=== PATIENT | male | born 1970 | race African-American/Black ===

== ENCOUNTER → 2019-05-06 | Outpatient (CLI) | payer BC ==
--- NOTE | 2019-05-06 11:30 | CARD ---
MR#: [id number] Date of Study: 05/06/2019 Ordering Physician: TATYANA COMER, Referring Physician: TATYANA COMER, Tech: [employer] APPROVED REPORT EXAM: Two-dimensional and M-mode echocardiogram with Doppler and color Doppler. Other Information Quality : GoodHR: 78bpm INDICATION Hypertension/HCVD RISK FACTORS Hypertension Smoking 2D DIMENSIONS RVDd2.6 (2.9-3.5cm)Left Atrium(2D)2.5 (1.6-4.0cm) IVSd1.0 (0.7-1.1cm)Aortic Root(2D)2.8 (2.0-3.7cm) LVDd4.5 (3.9-5.9cm)LVOT Diameter2.0 (1.8-2.4cm) PWd1.0 (0.7-1.1cm)LVDs3.2 (2.5-4.0cm) FS (%) 29.5 %SV53.0 ml LVEF(%)56.6 (>50%) Aortic Valve AoV Peak Manpreet.118.7cm/sAoV VTI18.9cm AO Peak GR.5.6mmHgLVOT Peak Manpreet.114.9cm/s LVOT VTI 18.69cmAO Mean GR.3mmHg KELSEA (VMAX)2.53ho2QSM (VTI)3.06cm2 Mitral Valve MV E Bpkmsohc81.5cm/sMV DECEL HGFC385wm MV A Gnadnepf30.3cm/sMV HCF63bw E/A Ratio1.2MVA (PHT)4.36cm2 TDI E/Lateral E'8.3E/Medial E'9.6 Pulmonary Valve PV Peak Rjofvnun37.2cm/sPV Peak Grad.3mmHg Tricuspid Valve TR P. Jugrgelo470ti/sRAP [id number] TR Peak Gr.31icMcRURA99cnTs Pulmonary Vein S1 Wxvyison09.2cm/sD2 Vfbyeokb35.3cm/s PVa [id number] LEFT VENTRICLE The left ventricle is normal size. There is mild concentric left ventricular hypertrophy. The left ve ntricular systolic function is normal. The Ejection Fraction is 50-55%. There is normal LV segmental wall motion. RIGHT VENTRICLE The right ventricle is normal size. There is normal right ventricular wall thickness. The right ventr icular systolic function is normal. ATRIA The left atrium size is normal. The right atrium size is normal. The interatrial septum is intact wit h no evidence for an atrial septal defect or patent foramen ovale as noted on 2-D or Doppler imaging. AORTIC VALVE The aortic valve is normal in structure and function. Doppler and Color Flow revealed no significant aortic regurgitation. There is no significant aortic valvular stenosis. MITRAL VALVE The mitral valve is mildly thickened. There is no evidence of mitral valve prolapse. There is no mitr al valve stenosis. Doppler and Color-flow revealed trace mitral regurgitation. TRICUSPID VALVE The tricuspid valve is normal in structure and function. Doppler and Color Flow revealed trace tricus pid regurgitation with an estimated PAP of 27 mmHg. There is no tricuspid valve stenosis. PULMONIC VALVE The pulmonic valve is not well visualized. Doppler and Color Flow revealed trace pulmonic valvular re gurgitation. GREAT VESSELS The aortic root is normal in size. The IVC is normal in size and collapses >50% with inspiration. PERICARDIAL EFFUSION There is no evidence of significant pericardial effusion. Critical Notification Critical Value: No <Conclusion> The left ventricular systolic function is normal. The Ejection Fraction is 50-55%. There is normal LV segmental wall motion. Trace mitral regurgitation. Trace tricuspid regurgitation with an estimated PAP of 27 mmHg. There is no evidence of significant pericardial effusion. Signed by : Oswaldo Black, Electronically Approved : 05/06/2019 11:30:13
--- NOTE | 2019-05-06 11:58 | RAD ---
MR#: [id number] Date of Study: 05/06/2019 Ordering Physician: TATYANA COMER, Referring Physician: TATYANA COMER, Tech: Sowmya Solomon RVT, CHARLIE APPROVED REPORT Patient Location: OUT-PATIENT Indications Uncontrolled HTN Risk Factors Smoking Renal Artery Doppler Right Renal Artery Left Renal Arter y Proximal 93.1/39.8 cm/secProximal 173.9/60.8 cm/sec Mid 102.4/45.8 cm/secMid 74.3/32.6 cm/sec Distal 63.6/28.6 cm/secDistal 74.3/30.5 cm/sec Renal/Aorta Ratio 0.90Renal/Aorta Ratio 1.50 Prox. Resistive Index 0.57Prox. Resistive Index 0.65 Mid Resistive Index 0.55Mid Resistive Index 0.56 Distal Resistive Index 0.55Distal Resistive Index 0.59 Aortic Doppler VelocityWaveform Proximal Aorta 67.4 cm/sec Mid. Aorta 115.8 cm/sec Findings Grayscale images of the bilateral renal arteries, aorta are limited due to bowel gas and body habitus Spectral waveforms and color Doppler involving the bilateral renal arteries are grossly within normal limits. Normal renal to aortic ratios noted. Normal bilateral renal sizes. No obvious vascular obstruction noted. Critical Notification Critical Value: No <Conclusion> 1. No significant renal artery stenosis identified. Limited study due to body habitus and bowel gas. Signed by : Beau Mcdaniel, Electronically Approved : 05/06/2019 11:58:22
== END | disposition home or self-care (01) ==
LOC: ECHO 10:05
PROVIDERS: ATTEND Internal Medicine Cardiovascular Disease
DX: I11.9 Hypertensive heart disease without heart failure (principal)
CPT/HCPCS: 76770; 93306